=== PATIENT | male | born 1975 | race Caucasian/White ===

== ENCOUNTER 2018-12-05 22:05 | Inpatient (IN) ==
[2018-12-06] MEDS ORDERED: Acetaminophen 325 MG TABLET PO PRN (01:38)
[2018-12-06] MEDS ORDERED: Naloxone 0.4 MG/ML INJ IVP PRN (01:38)
[2018-12-06] MEDS ORDERED: *HR* Promethazine 25 MG/ML VIAL IVP PRN (01:38)
[2018-12-06] MEDS ORDERED: *HR* LORazepam 2 MG/ML VIAL IVP PRN (01:38)
[2018-12-06] MEDS: Pantoprazole 40 MG VIAL IVP SCH ×2 (02:38→17:23)
[2018-12-06] MEDS: 0.9 % Sodium Chloride 1,000 ML IVC SCH ×2 (02:38→12:20)
--- NOTE | 2018-12-06 03:28 | Internal Med History&Physical ---
Date of Encounter: 12/06/18 Time of Encounter: 00:30 Internal Medicine - H&P: HPI Chief complaint: syncope, GI bleed Admitted From: Hospital to Hospital Transfer Plans for Post Hospital Care: Home History of present illness: Mr. Rae is a 43 year old male who presents in transfer from [facility]. He presented to the ER tonight after he sustained a syncopal spell at home. Before his syncopal spell, patient was defecating and noticed a large amount of blood in the toilet. He has a history of hemorrhoids but he's never had significant bleeding like this before. After his BM, he stood up and summoned his to the bathroom to assist him. At that time, he was standing up and did not complain of any lightheadedness or dizziness. However, he later found himself lying on the ground waking up to his as she was calling 911. He sustained a syncopal event and had no preceding symptoms. His reports that he had some gurgling sound and some tremors suggesting a possible seizure. He did not have any loss of bowel or bladder function and did not have any true postictal symptoms after the episode. He was brought to the ER at [facility] and was noted to have a bradycardic rhythm with a heart rate in the 30s. After some observation, IV fluid hydration, and lab draws, his heart rate improved and was sustained in the high 30s to mid 40s. Workup was negative other than sympt omatic bradycardia on telemetry and EKG. Transfer request was made to transfer patient to [place]. Upon arrival to [place], I saw patient at the bedside. Patient and confirmed above history. He has a history of neurocardiogenic syncope and was diagnosed about 8 years ago while in the . He has not, however, had sustained bradycardia as he has had [facility]. Because his heart rate dropped down and remained low prior to transfer, he was started on dopamine infusion per transport squad. He had significant nausea and vomiting on dopamine and it was stopped upon arrival. Presently, his heart rate is bouncing between mid 40s to high 50s. He denies any chest pain, shortness of breath, vomiting, or diarrhea. Regarding the GI bleed, patient has known hemorrhoids. He has not had any significant blood loss in the past. He does have a history of ulcers in his stomach diagnosed by EGD a few years ago. He denies any hematemesis or coffee- ground emesis. Past Med Surg Social Fam HX - Past Medical History Attestation: Yes The following information was validated with the patient. Source: patient, other ([facility] records) Medical history: GERD, hypertension Additional medical history: IBS, NEUROPATHY Psychiatric history: anxiety - Past Surgical History Surgical History: no surgical history - Social History Smoking Status: Never smoker Smokeless Tobacco Status: No Alcohol use: none Drug use: none Current living situation: Home, With Family Activity Level: Independent ambulation Recent Out of Country Travel Within the Last 8 Weeks: No - Family History Mother Living Status: Still Living Hx Family Cardiac Disorders: Yes Father Living Status: Still Living Hx Family Cardiac Disorders: Yes Hx Family Endocrine Disorder: Yes (diabetes) Internal Medicine - H&P: Meds Allergy/AdvReac Type Severity Reaction Status Date / Time Benzonatate Allergy Rash Verified 12/06/18 02:38 [From Ira Willoughby] Dopamine AdvReac Nausea Verified 12/06/18 02:38 - Constitutional Constitutional: no chills, no fever(s), no night sweats - EENT Eyes: no blurry vision, no change in vision Ears: no ear pain, no tinnitus Nose, mouth and throat: no nasal congestion, no sinus pressure, no sore throat - Cardiovascular Cardiovascular ROS IM: syncope, no chest pain, no dyspnea, no dyspnea on exertion, no lightheadedness, no orthopnea, no palpitations, no paroxysmal no cturnal dyspnea - Respiratory Respiratory: no cough, no dyspnea, no hemoptysis, no chest congestion, no excessive phlegm production, no change in phlegm color, no pain with cough - Gastrointestinal Gastrointestinal: hematochezia, no abdominal pain, no coffee ground emesis, no diarrhea, no heartburn, no hematemesis, no melena, no nausea, no vomiting - Genitourinary Genitourinary ROS male: no dysuria, no flank pain, no hematuria - Musculoskeletal Musculoskeletal ROS IM: no arthralgias, no back pain - Integumentary Integumentary IM: no rash, no jaundice - Neurological Neurological ROS: no disequilibrium, no dizziness, no focal weakness, no frequent falls, no headache(s) - Psychiatric Psychiatric: no anxiety, no depression - Endocrine Endocrine IM: no polydipsia, no polyuria - Allergic/Immunologic Allergic/Immunologic: no GI upset with certain foods - Constitutional Vitals: Temp Pulse Resp BP Pulse Ox 98.4 F 49 13 143/84 96 12/06/18 00:00 12/06/18 02:00 12/06/18 02:00 12/06/18 02:00 12/06/18 02:00 General appearance: Present: cooperative, A&O X 3, pleasant, no acute distress, answers questions appropriately Exam: see below - Head Head exam: Present: atraumatic, normal inspection - Eye Eye exam: Present: EOMI, PERRL. Absent: scleral icterus Pupils: Present: normal accommodation - ENT ENT exam: Present: mucous membranes dry, normal exam, normal oropharynx - Neck Neck exam general surgery: Present: full ROM, supple, trachea midline. Absent: tenderness, nuchal rigidity, thyromegaly - Respiratory Respiratory exam: Present: CTAB. Absent: chest wall tenderness, rales, rhonchi, wheezes - Cardiovascular Cardiovascular exam: Present: bradycardia, +S1, +S2. Absent: diastolic murmur, systolic murmur - GI/Abdominal GI/Abdominal exam: Present: normal bowel sounds, soft. Absent: guarding, hepatomegaly, mass, pulsatile mass, splenomegaly, tenderness - Extremities Exam Extremities exam: Present: full ROM, normal capillary refill, warm, radial pulses palpable and symmetrical. Absent: calf tenderness, joint swelling, pedal edema, tenderness - Back Exam Back exam: Absent: CVA tenderness (L), CVA tenderness (R) - Neurological Exam Neurological exam: Present: alert, CN II-XII intact, oriented X3, no focal deficits, strengths equal and symetr throughout - Psychiatric Psychiatric exam: Present: normal affect, normal mood - Skin Skin exam: Present: dry, intact, warm Internal Med - H&P Results - Labs Labs: I reviewed his labs from [facility] and include the following: Urine toxicology screennegative BC 7.0 Hemoglobin 14.8 Hematocrit 44.6 Platelets 231 Sodium 141 Potassium 3.8 Chloride 100 CO2 29 BUN 23 Glucose [address] abdomennegative EKG reveals patient to have sinus bradycardia with a heart rate in the 40s.; upon my review of EKG's, I am concerned he may have a Mobitz 2 2nd degree AV block with every other P wave conducted to a QRS. - EKG Data -: EKG Interpreted by Myself - EKG Data Prior EKG available for review: no EKG comments: 12/06/18 03:48 sinus bradycardia but concern for possible Type 2 second degree AV block - Assessment and Plan (1) Syncope Current Visit: Yes Status: Acute Assessment and plan: 1. Monitor on telemetry. 2. ECHO, Carotid Dopplers, trend troponins, and monitor glucose for hypoglycemia. 3. Consult cardiology, especially considering the bradycardia and concern for type 2 second degree AV block. 4. Consult neurology for concern of seizure -- likely due to syncopal spell. Defer to neurology regarding need for EEG and/or MRI. Qualifiers: Syncope type: unspecified Qualified Code(s): R55 - Syncope and collapse (2) Rectal bleed Current Visit: Yes Status: Acute Assessment and plan: 1. Will monitor serial H/H. 2. Transfuse PRBC if necessary. 3. Likely hemorrhoidal bleed, but + history of gastric ulcers. 4. Continue PPI. 5. Consult GI as he may need inpatient EGD. Likely colonoscopy as outpatient. (3) Symptomatic bradycardia Current Visit: Yes Status: Acute Assessment and plan: 1. Monitor on telemetry and hemodynamics. 2. May need dopamine infusion if becomes unstable 3. Cardiology consulted. (4) DVT prophylaxis Current Visit: Yes Status: Acute Assessment and plan: 1. EPCD's.
[2018-12-06 04:57] LABS: Basophils # 0.1 K/mcL (0.0-0.2); Basophils % 0.7 %; Eosinophils # 0.3 K/mcL (0.0-0.6); Eosinophils % 3.1 %; Hematocrit 42.7 % (37.5-50.1); Immature Granulocytes % 0.5 % (0-4); Lymphocytes # 1.8 K/mcL (0.6-4.6); Lymphocytes % 21.7 %; Mean Corpuscular HGB Conc 32.8 g/dL (31.6-35.5); Mean Corpuscular Volume 85.4 fL (83.0-100.0); Mean Platelet Volume 10.5 fL (9.4-12.4); Monocytes # 0.8 K/mcL (0.0-1.3); Monocytes % 9.1 %; Neutrophils # 5.4 K/mcL (1.6-8.9); Platelet Count 215 K/mcL (140-400); Segmented Neutrophils % 64.9 %; White Blood Count 8.3 K/mcL (4.3-11.1)
[2018-12-06 05:07] LABS: Prothrombin Time 11.9 Seconds (9.4-12.1)
[2018-12-06 05:09] LABS: Activated Partial Thrombo Time 33.1 Seconds (26.0-36.0)
[2018-12-06 05:14] LABS: Alanine Aminotransferase 31 Units/L (7-52); Albumin 4.4 g/dL (3.5-5.7); Albumin/Globulin Ratio 1.8 (1.1-2.2); Alkaline Phosphatase 57 Units/L (34-104); Aspartate Amino Transferase 24 Units/L (13-39); BUN/Creatinine Ratio 16 (6-26); Bilirubin,Total 0.6 mg/dL (0.3-1.0); Blood Urea Nitrogen 16 mg/dL (6-20); Calcium 9.1 mg/dL (8.6-10.3); Carbon Dioxide 26 mEq/L (23-29); Chloride 102 mEq/L (98-107); Globulin 2.5 g/dL (2.4-3.5); Glucose 96 mg/dL (70-105); Magnesium 2.1 mg/dL (1.6-2.6); Osmolality,Calculated 283 (280-300); Potassium 3.3 mEq/L (3.5-5.1); Sodium 136 mEq/L (136-145); Total Protein 6.9 g/dL (6.4-8.9); eGFR For African Americans > 60 (> 60); eGFR For Non-African Americans > 60 (> 60)
[2018-12-06] MEDS ORDERED: Potassium Chloride 40 MEQ, Lidocaine 1% 2 ML in D5% in Water 500 ML IVPB ONE (06:29)
--- NOTE | 2018-12-06 08:18 | Internal Med Progress Note ---
Hospitalist Progress Note - Encounter Date of Encounter: 12/06/18 Time of Encounter: 08:17 - Subjective Interval History: Patient lying in bed comfortably upon entering the room and is talking with neurology about symptoms. Patient states that he was standing in the bathroom with his following a bowel movement with blood when without buildup he lost consciousness and fell to the floor. Patient denies any hyperventilating or anxiety prior to syncope. Patient denies chest pain, shortness of breath, abdominal pain, nausea, vomiting, fever, chills, headache, or diarrhea. - Exam Vitals: Temp Pulse Resp BP Pulse Ox 98.0 F 42 8 131/80 93 12/06/18 07:10 12/06/18 06:00 12/06/18 06:00 12/06/18 06:00 12/06/18 06:00 Exam: General: AAOx3, good eye contact. Lungs: Normal breath sounds b/l, no wheezing or crackles Cardio: Normal S1 and S2, regular rhythm. Bradycardia. Abdomen: Soft, nontender, nondistended, Extremities: Warm, well perfused. FROM Skin: Warm and dry. No diaphoresis. Neuro: Awake, fully oriented. Speech fluent. CNII-XII intact. 5/5 strength in Bilateral Upper and Lower Extremities. - Assessment and Plan (1) Syncope Current Visit: Yes Status: Acute Assessment and Plan: Patient had syncopal episode after standing up from a prolonged period of time on the toilet. Patient with history of vasovagal syncope found on tilt table test in past. Patient taking Midrodrine. EKG showing sinus bradycardia with heart rate in the 40s. Echo on 12/06 negative. EEG on 12/06 negative. -Orthostatic blood pressures ordered -Continuous telemetry -Blood pressure medication and Midrodrine held. -Carotid ultrasound ordered. -Cardiology and neurology consulted, will follow recommendations -Cardiology recommending outpt EP study (2) Orthostatic hypotension Current Visit: Yes Status: Chronic Assessment and Plan: As noted above in syncope. (3) Symptomatic bradycardia Current Visit: Yes Status: Chronic Assessment and Plan: As noted above in syncope. (4) Rectal bleed Current Visit: Yes Status: Chronic Assessment and Plan: Patient with a history of hemorrhoids and had a grossly bloody bowel movement at home prior to syncope. No new bloody stool since admission. H&H stable at 13.3 and 40.8 -GI consulted, recommended outpatient follow-up and colonoscopy outpatient. DVT Prophylaxis: SCDs for DVT prophylaxis - Time Spent with Patient Total time spent is greater than 50% in coordination of care (as documented) at patient's floor/unit and/or counseling patient: Internal Medicine: Result - Labs CBC & Chem 7: 12/06/18 13:50 12/06/18 03:53 Labs: Short CBC 12/06/18 Range/Units 03:53 WBC 8.3 (4.3-11.1) K/mcL Hgb 14.0 (12.9-16.9) g/dL Hct 42.7 (37.5-50.1) % Plt Count 215 (140-400) K/mcL Neutrophils # 5.4 (1.6-8.9) K/mcL BMP 12/06/18 03:53 Sodium 136 Potassium 3.3 L Chloride 102 Carbon Dioxide 26 BUN 16 Creatinine 1.01 Glucose 96 Calcium 9.1 Cardiac Enzymes 12/06/18 Range/Units 03:53 Troponin I < 0.03 (< 0.04) ng/mL Liver Function 12/06/18 Range/Units 03:53 Total Bilirubin 0.6 (0.3-1.0) mg/dL AST 24 (13-39) Units/L ALT 31 (7-52) Units/L Alkaline Phosphatase 57 (34-104) Units/L Albumin 4.4 (3.5-5.7) g/dL - ABG Interpretation ABG results: PT/INR, D-dimer PT 11.9 Seconds (9.4-12.1) 12/06/18 03:53 Consult Discharge Plan - Plan Referrals: NONE,PCP [Primary Care Provider] - (1) Syncope Qualifiers: Qualified Code(s): R55 - Syncope and collapse
--- NOTE | 2018-12-06 08:36 | Neurology - Consult Note ---
Date of Encounter: 12/06/18 Time of Encounter: 08:35 Assessment and Plan (1) Syncope Current Visit: Yes Status: Acute Patient presented for chief complaint of syncopal episode Multiple possible etiologies and the patient has a very significant past medical history of orthostatic hypotension, symptomatic bradycardia, vasovagal syncope He is also on multiple sedating and contradictory medications including gabapentin, mirtazapine, paroxetine, hydrochlorothiazide, lisinopril, Midodrine Cardiology was consulted for obvious reasons, neurology was consulted due to concern for seizure secondary to minor tremor during syncopal event Neurological physical exam was completely benign except for bilateral gis specialist strength deficit which patient states is normal secondary to his cervical radiculopathy Mild tremor is common in syncopal events, clinical suspicion for seizure is low, patient has no seizure history, however we will screen with EEG I have also ordered orthostatic vital signs and discussed potential etiologies with cardiology team and hospitalist team We will monitor for EEG results and orthostatic vitals results, I do not anticipate neurology intervention this admission Further recommendations per Qualifiers: Syncope type: unspecified Qualified Code(s): R55 - Syncope and collapse (2) Orthostatic hypotension Current Visit: Yes Status: Chronic Patient has history of orthostatic hypotension for which he takes Midodrine (3) Symptomatic bradycardia Current Visit: Yes Status: Chronic Patient reports a baseline resting heart rate in the high 40s to low 50s which could be contributing to his past history of syncope and hypotension (4) Rectal bleed Current Visit: Yes Status: Chronic Patient has history of hemorrhoids and it is common for him to have blood on his toilet paper However he states that the amount of blood in the toilet bowl during this episode was much more than normal His hemoglobin on admission is 14 and it is unlikely this contributed to his syn copal episode except maybe in an anxiety aspect He does have a history of GERD and gastric ulcer and gastroenterology is consulted History of Present Illness Chief complaint: syncope HPI: Mr. Rae is a 43 year old male with past medical history of hypertension, hyperlipidemia, hemorrhoids, anxiety, orthostatic hypotension, vasovagal syncope, irritable bowel syndrome, GERD, gastric ulcer, cervical radiculopathy. At home he takes mirtazapine, Midodrine, hydrochlorothiazide, lisinopril, omeprazole, Bentyl, simethicone, simvastatin, Paxil, gabapentin. He has had multiple issues in the past involving orthostatic hypotension and near syncope. Yesterday evening he had a bowel movement and saw blood on toilet paper which is normal for him secondary to his hemorrhoids, however when he stood up and looking the toilet bowl it was "full of blood". He called his and to the bathroom, [facility], he was standing in the bathroom with his calling urgent care and the next thing he knew he was waking up on the floor next to his . His reports that he went down all of a sudden and was making snoring noises and had a slight bilateral upper extremity tremor but woke up spontaneously within 2-3 minutes. By that time he was asymptomatic and did not exhibit any post ictal type symptoms. He denies any chest pain, shortness of breath, fever, chills associated with the episode. He was transported to [facility] via EMS. At [facility] he was noted to be bradycardic in the 30s to 40s. Troponin, CT of the head, chest x-ray were without acute process. EKG demonstrated sinus bradycardia. Due to the concern for possible seizure activity and symptomatic bradycardia the patient was transferred to [facility] on dopamine drip. Here the admitting physician jose snow cardiology and neurology. Dopamine drip was discontinued secondary to severe nausea. After discontinuing dopamine his heart rate and blood pressure remained stable and nausea was relieved. Admitting hospitalist also mentioned in his documentation a concern for second-degree heart block. I did review EKG performed here which demonstrated sinus bradycardia without any sign of secondary heart block. However I also reviewed EKG transferred from [facility] which demonstrates sinus bradycardia with nonspecific T-wave changes that may actually be P waves without complexes hiding in the T waves, however that is difficult to determine. Regardless since arriving here his rhythms have been sinus. I informed the patient that a small tremor can be common in syncopal episodes and that suspicion for seizure is low however we will perform EEG as a screening tool. He stated he understood and agreed with the plan of care. Past Med Surg Social Fam HX - Past Medical History Medical history: GERD, hypertension Additional medical history: IBS, NEUROPATHY Psychiatric history: anxiety - Past Surgical History Surgical History: no surgical history - Social History Smoking Status: Never smoker Smokeless Tobacco Status: No Alcohol use: none Drug use: none - Family History Mother Living Status: Still Living Hx Family Cardiac Disorders: Yes Father Living Status: Still Living Hx Family Cardiac Disorders: Yes Hx Family Endocrine Disorder: Yes (diabetes) Medications and Allergies Allergy/AdvReac Type Severity Reaction Status Date / Time Benzonatate Allergy Rash Verified 12/06/18 02:38 [From Ira Fartun] Dopamine AdvReac Nausea Verified 12/06/18 02:38 All Systems: The remainder of the systems were reviewed and are negative Review of Systems: 10 point review of systems negative except as otherwise mentioned in history of present illness. Physical Examination - Vital Signs Vital Signs: Initial Vital Signs Temp Pulse Resp BP Pulse Ox 98.4 F 50 13 138/77 94 12/06/18 00:00 12/06/18 00:00 12/06/18 00:00 12/06/18 00:00 12/06/18 00:00 - Exam Exam: Examination: General Examination: *CONSTITUTIONAL: Alert and oriented x3, no acute distress *GENERAL APPEARANCE OF PATIENT appears healthy and well groomed *EYES: pupils equal, round, reactive to light and accommodation, conjunctiva clear without masses or ulcerations *CARDIOVASCULAR: Bradycardic rate, regular rhythm, S1, S2, no mumurs, rubs, or gallops, no peripheral edema, no carotid bruit * MUSCULOSKELETAL: *GAIT AND STATION: Gait not tested, with normal Romberg testing *ASSESSMENT OF MUSCLE STRENGTH IN THE UPPER AND LOWER EXTREMITIES bilateral deltoid, bicep, tricep, hip flexors ,anterior tibialis, dorsoflexion of the foot 5/5. gis specialist strength 4/5 which patient states is normal for him secondary to cervical radiculopathy *MUSCLE TONE IN THE UPPER AND LOWER EXTREMITIES normal. No abnormal movements, fasciculations or atrophy identified. Neurological: *ORIENTATION to person, situation, time and place *LANGUAGE AND FUNCTION no significant aphasia or dysarthia was noted. *ATTENTION AND CONCENTRATION are normal *FUND OF KNOWLEDGE aware of current events, past history, vocabulary *MENTAL attention span and concentration normal. *CN II visual hassan intact *CN III,IV, PERRLA extraocular eye movements were full, no nystagmus and no ptosis noted. *CN V shows normal sensation and jaw opens symmetrically. *CN VII shows normal facial movement symmetrically, upper and lower bilaterally. *CN VIII shows no significant hearing loss on exam *CN IX-X palate elevated symmetrically *CN XI normal strength in the sternocleidomastoid muscles, symmetrical shoulder shrugging. *CN XII tongue protruded in the midline, with normal strength and movement. *SENSORY EXAMINATION light touch intact *REFLEXES: deep tendon reflexes were normal and symmetrical , grade 2/4 diffusely, no pathological reflexes were noted. *CEREBELLAR TESTING normal finger to nose *PAIN LEVEL 0/10 Results - Laboratory Findings CBC and BMP: 12/06/18 03:53 12/06/18 03:53 Abnormal lab findings: Abnormal lab results Potassium 3.3 mEq/L (3.5-5.1) L 12/06/18 03:53 Consult Discharge Plan - Plan Referrals: NONE,PCP [Primary Care Provider] -
--- NOTE | 2018-12-06 08:39 | Cardiology Consult Note ---
<Ja Lerma - Last Filed: 12/06/18 13:49> Date of Encounter: 12/06/18 Time of Encounter: 09:46 Assessment and Plan (1) Syncope Current Visit: Yes Status: Acute - Patient initially presented after experiencing a syncopal episode after he had a bowel movement and noticed a large amount of blood in toilet bowl - Per patient's , patient went down suddenly and was making snoring noises, and had a slight upper extremity tremor - Woke up spontaneously after being down for approximately 2-3 minutes; no post ictal symptoms were observed - Etiology unknown at this time; potential etiologies include vasovagal, CVA, arrhythmia, acute blood loss anemia - On review of medications, patient is on both Midrodrine and lisinopril-HCTZ - GI is following for potential lower GI bleed Plan: - Recommend discontinuation of Midrodrine, as this may be contributing to patient's symptoms - TTE and carotid dopplers have been ordered and is currently pending - Neurology is following; full workup is currently pending - Keep patient on continuous telemetry - Patient will need a Holter monitor upon discharge - Recommend electrophysiology workup in the outpatient setting; PATIENT SHOULD NOT DRIVE until he is cleared Qualifiers: Syncope type: unspecified Qualified Code(s): R55 - Syncope and collapse (2) Symptomatic bradycardia Current Visit: Yes Status: Chronic - Initially presented to [facility] after a syncopal episode - EKG demonstrated sinus bradycardia with heart rate in the 40s - Was subsequently started on a dopamine drip - Review of vitals has demonstrated heart rate in the 40s to 50s since his admission Plan: - Continuous telemetry - Will discontinue Midrodrine (3) Rectal bleed Current Visit: Yes Status: Chronic - Presented after syncopal episode after bowel movement - Noticed large amount of blood in toilet bowl - Known history of hemorrhoids Plan: - GI following; recommends outpatient followup in 2 weeks - Colonoscopy in the outpatient setting - Continue protonix drip Discussion w patient/family: The assessment and plan as outlined above was discussed with the patient and/or family members who expressed understanding and agreement. All questions were answered. Thank you for involving us in the care of your patient. Please call with any questions. History of Present Illness Consult date: 12/06/18 Consult reason: Syncope, bradycardia Chief complaint: Syncope History of present illness: Mr. Rae is a 43 year old male with a PMH of HTN, HLD, anxiety, orthostatic hypotension, vasovagal syncope, IBS, GERD, hypotension, and cervical radiculopathy who presented to [facility] ED on 12/06 with a chief complaint of blood per rectum and syncopal episode. Patient had a bowel movement and saw blood on the toilet paper, when he stood up, he noticed that the toilet bowl was full of blood. Patient subsequently had a syncopal episode. According to his , he went down and suddenly and was making snoring noises and had a slight bilateral upper extremity tremor. He woke up spontaneously after approximately 2-3 minutes. No post ictal symptoms were observed. Denied shortness of breath or chest pain associated with episode. Was initially transferred to [facility]. Vitals on arrival demonstrated bradycardia with heart rate in the 30s to 40s. CXR showed no acute process. CT scan of the head was unremarkable. Troponin was negative. Patient was transferred to [facility] for further management on dopamine drip. This was subsequently discontinued due to severe nausea. Heart rate and blood pressure remained stable after this. EKG on arrival demonstrated sinus bradycardia. Both cardiology and neurology services were consulted. An EEG has been ordered and is currently pending. Troponin levels are pending as well. The cardiology service is consulted for syncope and bradycardia. During interview today, patient states that he is feeling well. He states that he felt weak last night after being admitted to the hospital, but since then, he has not had any weakness, dizziness, lightheadedness, or syncopal episodes. He reports that before the syncopal episode, he had one prior episode approximately 18 years prior, which occurred while he was standing up and urinating. He states that he was diagnosed with vasovagal syncope at that time. He has been on Midrodrine since approximately 2010, and has been on lisinopril/hydrochlorothiazide for approximately one year. Patient is asymptomatic during interview has no complaints at this time. Full syncope workup, including echocardiogram, carotid Dopplers, and EEG is currently pending. We recommend stopping midrodrine, as this may be contributing to his symptoms. Patient will need fitted for Holter monitor on discharge. We also recommend follow-up with electrophysiology in the outpatient setting. Patient was instructed to not drive until he has been cleared. This plan was discussed with patient, and he is in agreement. Past Med Surg Social Fam HX - Past Medical History Medical history: GERD, hypertension Additional medical history: IBS, NEUROPATHY Psychiatric history: anxiety - Past Surgical History Surgical History: no surgical history - Social History Smoking Status: Never smoker Smokeless Tobacco Status: No Alcohol use: none Drug use: none - Family History Mother Living Status: Still Living Hx Family Cardiac Disorders: Yes Father Living Status: Still Living Hx Family Cardiac Disorders: Yes Hx Family Endocrine Disorder: Yes (diabetes) Medications and Allergies Allergy/AdvReac Type Severity Reaction Status Date / Time Benzonatate Allergy Rash Verified 12/06/18 02:38 [From Tesjaylyn Willoughby] Dopamine AdvReac Nausea Verified 12/06/18 02:38 All Systems Review: The remainder of the systems were reviewed and are negative - Constitutional Constitutional: no chills, no fever(s) - Cardiovascular Cardiovascular: slow heart rate, no chest pain at rest, no diaphoresis, no dyspnea at rest, no dyspnea on exertion, no irregular heart rhythm, no radiating jaw, neck or arm pain, no orthopnea, no palpitations Physical Examination Vital Signs, Last 4 Hours Temp Pulse Resp BP Pulse Ox 12/06/18 07:10 98.0 F 12/06/18 06:00 42 8 131/80 93 12/06/18 05:00 51 10 134/92 93 General: Conversant, No Apparent Distress HEENT: Atraumatic, Normocephaly, Mucus Membranes Moist Neck: No JVD, Normal carotid pulses Cardiac: Normal S1 and S2, No Murmur, Other (bradycardia) Lungs: Normal Breath Sounds, No Wheeze, Rales, Rhonchi Neuro: Alert and responsive, No focal deficits noted Abdomen: Soft, Non-Tender Skin: No rashes noted on visualized skin Musculoskeletal: No Chest Wall Tenderness Extremities: No Clubbing, No Cyanosis, No Edema, Normal Pulses Results 12/06/18 08:45 12/06/18 03:53 Lab Results 12/06/18 12/06/18 12/06/18 03:53 03:53 03:53 WBC 8.3 Hgb 14.0 Hct 42.7 Plt Count 215 INR 1.0 APTT 33.1 Sodium 136 Potassium 3.3 L Chloride 102 Carbon Dioxide 26 BUN 16 Creatinine 1.01 Glucose 96 Calcium 9.1 Magnesium 2.1 Total Bilirubin 0.6 AST 24 ALT 31 Alkaline Phosphatase 57 Troponin I 12/06/18 03:53 WBC Hgb Hct Plt Count INR APTT Sodium Potassium Chloride Carbon Dioxide BUN Creatinine Glucose Calcium Magnesium Total Bilirubin AST ALT Alkaline Phosphatase Troponin I < 0.03 Consult Discharge Plan - Plan Referrals: NONE,PCP [Primary Care Provider] - <MonaJose - Last Filed: 12/06/18 14:56> Date of Encounter: 12/06/18 - Attending Attestation I examined this patient and my medical decision-making was reviewed with the Resident Physician. I agree with the documented findings, disposition and treatment plan as described except to the extent set forth below. 43-year-old male presents to [facility] after syncope as described above no prodrome no seizure like activity or incontinence witnessed by his who confirmed both pulse and breathing during a few minutes he was unconscious. She described as snoring loudly with minimal upper extremity tremors. Nation has been diagnosed with no cardiogenic syncope in the past. Possible lower G.I. bleed culprit and seen his blood in the toilet bowl. Also patient on lisinopril and midodrine. Bradycardia was noted at outside hospital likely secondary to midodrine. Will hold and continue lisinopril as needed. Also obtain 30 day monitor and echo currently pending. Patient will follow-up with EP as an outpatient and was asked not drive until further recommendations Assessment and Plan Discussion w patient/family: The assessment and plan as outlined above was discussed with the patient and/or family members who expressed understanding and agreement. All questions were answered. Thank you for involving us in the care of your patient. Please call with any questions. History of Present Illness History of present illness: Mr. Rae is a 43 year old male All Systems Review: The remainder of the systems were reviewed and are negative Physical Examination Vital Signs, Last 4 Hours Temp Pulse Resp BP Pulse Ox 12/06/18 12:00 98.0 F 47 15 111/77 96 Results 12/06/18 13:50 12/06/18 03:53 Lab Results 12/06/18 12/06/18 12/06/18 03:53 03:53 03:53 WBC 8.3 Hgb 14.0 Hct 42.7 Plt Count 215 INR 1.0 APTT 33.1 Sodium 136 Potassium 3.3 L Chloride 102 Carbon Dioxide 26 BUN 16 Creatinine 1.01 Glucose 96 Calcium 9.1 Magnesium 2.1 Total Bilirubin 0.6 AST 24 ALT 31 Alkaline Phosphatase 57 Troponin I 12/06/18 12/06/18 12/06/18 03:53 08:45 08:45 WBC Hgb 14.0 Hct 42.0 Plt Count INR APTT Sodium Potassium Chloride Carbon Dioxide BUN Creatinine Glucose Calcium Magnesium Total Bilirubin AST ALT Alkaline Phosphatase Troponin I < 0.03 < 0.03 12/06/18 12/06/18 13:50 13:50 WBC Hgb 13.3 Hct 40.8 Plt Count INR APTT Sodium Potassium Chloride Carbon Dioxide BUN Creatinine Glucose Calcium Magnesium Total Bilirubin AST ALT Alkaline Phosphatase Troponin I < 0.03
--- NOTE | 2018-12-06 11:52 | EEG/EMG/Oth Biometrics Report ---
EEG Procedure Report Date of procedure: 12/06/18 EEG Procedure: Routine EEG Procedure Note: This EEG was acquired with standard international 10-20 system with EKG recording. The background EEG activity was characterized by the presence of posterior dominant alpha rhythm with the best frequency up to 10Hz. The background activity was reactive to eye openings. Sleep stages were characterized by the presence of background fragmentation, vertex waves, K complexes, and sleep spindles. There are no electrographic seizures identified during this tracing. There are no epileptiform discharges or focal slowing noted during this recording. Photic stimulation and hyperventilation produced no abnormalities. Hyperventilation efforts appeared adequate due to development of diffuse background slow during and immediately after HV challenge. EKG tracing showed no significant cardiac dysrhythmia. Impression: This is essentially a normal awake and asleep EEG. Clinical Correlation: Normal EEGs, however, do not exclude epilepsy. Clinical correlation is advised.
--- NOTE | 2018-12-06 13:18 | Gastroenterology Consult Note ---
Date of Encounter: 12/06/18 Time of Encounter: 11:10 - Assessment and plan (1) Rectal bleed Current Visit: Yes Status: Chronic Assessment and plan: Patient with epeisode of BRBPR that filled bowl. Hgb 14 on admission and repeat this AM Hgb 14. No further episodes noted. Patient with hx of hemorrhoids. Start daily fiber supplement. Recommend outpatient colonoscopy. Follow up with GI in 2 weeks. Obtain EGD and colonoscopy reports and pathology from [place] in 2012. No indication for EGD at this time. No abdominal pain, nausea, vomiting, or melena. (2) Syncope Current Visit: Yes Status: Acute Qualifiers: Syncope type: unspecified Qualified Code(s): R55 - Syncope and collapse - Time Spent With Patient Total time spent is greater than 50% in coordination of care (as documented) at patient's floor/unit and/or counseling patient: GI History of Present Illness - Data of Consult Patient: new to practice Consult date: 12/06/18 Requesting Physician: Jacob Singleton - Consult Narrative Reason for consult: GI bleed History of present illness: Mr. Rae is a 43 year old male with PMHx of GERD, HTN, HLD, hemorrhoids, anxiety, IBS, who presented to [facility] ED on 12/06 with a chief complaint of blood per rectum and syncopal episode. Patient had a bowel movement and saw blood on the toilet paper, when he stood up, he noticed that the toilet bowl was full of blood and had a syncopal episode. He woke up spontaneously after approximately 2-3 minutes. No post ictal symptoms were observed. He denies nausea, vomiting, coffee-ground emesis, or hematemesis. Hgb 14 on admission. He reports EGD and colonoscopy around 2012 in [place]. Colonoscopy completed due to IBS and showed benign polyps and EGD with ulcer and esophagitis, per patient report. CT head was unremarkable. Procedures: EGD 2012 in [place]: Ulcer and esophagitis per patient report. Colonoscopy 2012 [place]: Benign polyp per patient report. NSAIDs: None Anticoagualtion: None Past Med Surg Social Fam HX - Past Medical History Medical history: GERD, hypertension Additional medical history: IBS, NEUROPATHY Psychiatric history: anxiety - Past Surgical History Surgical History: no surgical history - Social History Smoking Status: Never smoker Smokeless Tobacco Status: No Alcohol use: none Drug use: none - Family History Mother Living Status: Still Living Hx Family Cardiac Disorders: Yes Father Living Status: Still Living Hx Family Cardiac Disorders: Yes Hx Family Endocrine Disorder: Yes (diabetes) - Gastrointestinal Gastrointestinal: Present: as per HPI - Constitutional Constitutional: as per HPI - EENT Eyes: as per HPI Ears: Present: as per HPI Nose, mouth and throat: Present: as per HPI - Cardiovascular Cardiovascular ROS: Present: as per HPI - Respiratory Respiratory IM: Present: as per HPI - Genitourinary Genitourinary: Absent: change in color, Urinary frequency - Neurological ROS Neurological GI: Present: as per HPI - Hematologic/Lymphatic Hematologic/Lymphatic pediatric: Present: as per HPI - Musculoskeletal Musculoskeletal ROS GI: Present: as per HPI - Integumentary Integumentary GI: Present: as per HPI - Psychiatric ROS Psychiatric GI: Present: as per HPI - Endocrine Endocrine IM: Present: as per HPI - Constitutional Vitals: Temp Pulse Resp BP Pulse Ox 98.0 F 54 12 111/71 96 12/06/18 10:00 12/06/18 10:00 12/06/18 10:00 12/06/18 10:00 12/06/18 10:00 General appearance: Present: cooperative, A&O X 3, no acute distress, answers questions appropriately - Head Head exam: Present: atraumatic, normocephalic - Eye Eye exam: Present: normal appearance, sclera anicteric - ENT ENT exam: Present: mucous membranes moist - Neck Neck exam general surgery: Present: normal inspection, trachea midline - Respiratory Respiratory exam: Present: CTAB. Absent: rales, rhonchi - Cardiovascular Cardiovascular exam: Present: RRR, +S1, +S2 - GI/Abdominal GI/Abdominal exam: Present: soft, no peritoneal signs. Absent: distended, firm, guarding, tenderness - Rectal Rectal exam: Present: deferred - Extremities Exam Extremities exam: Present: warm - Neurological Exam Neurological exam: Present: no focal deficits - Psychiatric Psychiatric exam: Present: normal affect, normal mood - Skin Skin exam: Present: dry, intact, normal color, warm Results - Labs CBC & Chem 7: 12/06/18 08:45 12/06/18 03:53 Labs: Last Result 12/06/18 12/06/18 12/06/18 03:53 03:53 08:45 Calcium 9.1 Troponin I < 0.03 < 0.03 Entire Visit 12/06/18 12/06/18 12/06/18 03:53 03:53 03:53 Hgb 14.0 Hct 42.7 PT 11.9 Total Bilirubin 0.6 AST 24 ALT 31 12/06/18 08:45 Hgb 14.0 Hct 42.0 PT Total Bilirubin AST ALT - ABG ABG results: PT/INR, D-dimer PT 11.9 Seconds (9.4-12.1) 12/06/18 03:53 Consult Discharge Plan - Plan Referrals: NONE,PCP [Primary Care Provider] -
[2018-12-06 14:23] LABS: Hematocrit 40.8 % (37.5-50.1); Hemoglobin 13.3 g/dL (12.9-16.9)
--- NOTE | 2018-12-06 17:11 | Electrocardiograph Report ---
[address] [address] Test Date: 2018-12-06 Pat Name: Fabricio Rae Department: 109 Room: 2A41 Gender: M President And Chief Operating Officer: : 1975 Requested By: Isaac Burns Order Number: [id number] Reading MD: Alberto Weaver Measurements Intervals Blairs Rate: 43 P: 61 ND: 185 QRS: -12 QRSD: 122 T: 14 QT: 513 QTc: 460 Interpretive Statements SINUS BRADYCARDIA MODERATE INTRAVENTRICULAR CONDUCTION DELAY Electronically Signed On 12-06-2018 17:09:34 EDT by Alberto Weaver
[2018-12-06 20:02] LABS: Hematocrit 42.2 % (37.5-50.1); Hemoglobin 13.7 g/dL (12.9-16.9)
[2018-12-07 02:37] LABS: Hematocrit 41.1 % (37.5-50.1); Hemoglobin 13.5 g/dL (12.9-16.9); Mean Corpuscular HGB Conc 32.8 g/dL (31.6-35.5); Mean Corpuscular Volume 85.1 fL (83.0-100.0); Mean Platelet Volume 10.4 fL (9.4-12.4); Platelet Count 205 K/mcL (140-400); Red Blood Count 4.83 M/mcL (4.19-5.50); Red Cell Distribution Width 13.6 % (11.5-14.5); White Blood Count 5.2 K/mcL (4.3-11.1)
[2018-12-07 03:00] LABS: BUN/Creatinine Ratio 15 (6-26); Blood Urea Nitrogen 17 mg/dL (6-20); Calcium 9.2 mg/dL (8.6-10.3); Carbon Dioxide 29 mEq/L (23-29); Chloride 104 mEq/L (98-107); Glucose 122 mg/dL (70-105); Osmolality,Calculated 293 (280-300); Sodium 140 mEq/L (136-145); eGFR For African Americans > 60 (> 60); eGFR For Non-African Americans > 60 (> 60)
[2018-12-07] MEDS: Pantoprazole 40 MG VIAL IVP SCH (05:06)
[2018-12-07 07:48] VITALS: BP 136/77
[2018-12-07 08:27] LABS: Hematocrit 40.6 % (37.5-50.1); Hemoglobin 13.3 g/dL (12.9-16.9)
--- NOTE | 2018-12-07 08:49 | Discharge Summary ---
- NOTES TO OUTPATIENT PROVIDER Notes to Outpatient Provider: Pt to hold lisinopril, HCTZ, and midrodrine due to recent syncopal episode. Has follow up with Cardiology scheduled for EP study. Orders not resulted at time of discharge: Pending orders 12/07/18 14:00 Hemoglobin and Hematocrit [HEME] Q6H 12/07/18 20:00 Hemoglobin and Hematocrit [HEME] Q6H 12/08/18 02:00 Hemoglobin and Hematocrit [HEME] Q6H Date of Encounter: 12/07/18 Time of Encounter: 08:49 - Discharge Diagnosis (1) Syncope Priority: Primary Status: Resolved Qualifiers: Syncope type: unspecified Qualified Code(s): R55 - Syncope and collapse (2) Orthostatic hypotension Priority: Secondary Status: Chronic (3) Symptomatic bradycardia Priority: Secondary Status: Chronic (4) Rectal bleed Priority: Secondary Status: Chronic Hospital course: Mr. Rae is a 43 year old male for past medical history significant for orthostatic hypotension, hypertension, hemorrhoids, and GERD. Patient presented to [place] [facility] after having a syncopal episode at home witnessed by following a bowel movement with a large amount of blood in the toilet. Patient taking the midrodrine as well as Lisinopril and HCTZ at home. Patient transferred to [place] [facility] and upon arrival was found to have a blood pressure of 138/77 with a heart rate of 50. Patient continued to have bradycardia throughout the majority of his stay with heart rates ranging from 40-60. Due to reported blood in stool serial H&H's were performed and GI consulted. H&H values have been stable throughout stay, and GI to set up outpatient colonoscopy for follow-up as acute GI bleed was highly unlikely. Neurology was also consulted due to patient's syncopal episode and an EEG was performed which was found to be within normal limits. Cardiology was also consulted and a TTE and carotid Dopplers were ordered which both were found to be noncontributory. Lisinopril, HCTZ, and Midrin have been stopped since admission and will be discontinued upon discharge. Patient clinically improved with no other episodes of syncope or bloody bowel movements. Patient to go home with a Holter monitor for 1 month and follow-up with cardiology as scheduled for EP study. Discharge discussed with: patient, family - Time Spent with Patient Total time spent providing and/or coordinating discharge services: Time spent: Greater than 30 minutes - Discharge Medications Prescriptions: Continued Simvastatin [Zocor] 20 mg PO QPM Simethicone [Gas-X] 80 mg PO QID PRN PRN Reason: GAS Paroxetine HCl [Paxil] 40 mg PO HS Omeprazole [PriLOSEC] 20 mg PO DAILY Mirtazapine [Remeron] 15 mg PO HS Cholecalciferol (D-3) [Vitamin D] 1,000 units PO DAILY Meloxicam [Mobic] 15 mg PO DAILY Gabapentin [Neurontin] 600 mg PO BID Dicyclomine [Bentyl] 10 mg PO BID PRN PRN Reason: STOMACH Diclofenac Sodium [Voltaren] 4 gm TP TID PRN MDD 32 GRAMS PRN Reason: Pain L.acidoph,Paracasei, B.lactis [Probiotic] 1 cap PO DAILY Discontinued Midodrine [ProAmatine] 10 mg PO DAILY Lisinopril [Zestril] 10 mg PO DAILY hydroCHLOROthiazide [Hydrochlorothiazide] 25 mg PO DAILY Home Medications: Cholecalciferol (D-3) [Vitamin D] 1,000 units PO DAILY 12/06/18 [History] Diclofenac Sodium [Voltaren] 4 gm TP TID PRN MDD 32 GRAMS 12/06/18 [History] Dicyclomine [Bentyl] 10 mg PO BID PRN 12/06/18 [History] Gabapentin [Neurontin] 600 mg PO BID 12/06/18 [History] L.acidoph,Paracasei, B.lactis [Probiotic] 1 cap PO DAILY 12/06/18 [History] Meloxicam [Mobic] 15 mg PO DAILY 12/06/18 [History] Mirtazapine [Remeron] 15 mg PO HS 12/06/18 [History] Omeprazole [PriLOSEC] 20 mg PO DAILY 12/06/18 [History] Paroxetine HCl [Paxil] 40 mg PO HS 12/06/18 [History] Simethicone [Gas-X] 80 mg PO QID PRN 12/06/18 [History] Simvastatin [Zocor] 20 mg PO QPM 12/06/18 [History] Allergies/Adverse Reactions: Allergy/AdvReac Type Severity Reaction Status Date / Time Benzonatate Allergy Rash Verified 07/15/19 02:38 [From Ira Willoughby] Dopamine AdvReac Nausea Verified 12/06/18 02:38 Date of admission: 12/06/18 01:38 Primary care physician: PCP NONE Consults: 12/06/18 01:38 Consult to Cardiology [CONS] Routine Comment: Consulting Provider: Cardiology [facility] Reason for Consult: syncope; symptomatic bradycardia Call Completed: No Consult to Gastroenterology [CONS] Routine Consulting Provider: Gastroenterology [place] Reason for Consult: GI bleed; h/o peptic ulcer disease Call Completed: No Consult to Neurology [CONS] Routine Consulting Provider: Neurology [facility] Reason for Consult: questionable seizure after syncopal spell; ? need for seizure work-up Call Completed: No 12/06/18 12:40 Consult to Interpret Exam [CONS] Routine Consulting Provider: Efren Alaniz Consult to Interpret Exam: Interpret EEG Discharging clinician: Sahil Joe - Constitutional Vitals: Temp Pulse Resp BP Pulse Ox 97.8 F 51 17 136/77 95 12/07/18 07:47 12/07/18 07:47 12/07/18 07:47 12/07/18 07:47 12/07/18 07:47 General appearance: Present: cooperative, A&O X 3, pleasant, no acute distress, answers questions appropriately Exam: General: AAOx3, good eye contact. Lungs: Normal breath sounds b/l, no wheezing or crackles Cardio: Normal S1 and S2, regular rhythm. Bradycardia. Abdomen: Soft, nontender, nondistended, Extremities: Warm, well perfused. FROM Skin: Warm and dry. No diaphoresis. Neuro: Awake, fully oriented. Speech fluent. CNII-XII intact. 5/5 strength in Bilateral Upper and Lower Extremities. - Patient Status Disposition: Home, Self-Care Condition: Good Functional capacity at discharge: independent ambulation Overall status at discharge: patient is back to baseline - Discharge Instructions Instructions: Syncope (DC) Follow Up With: Alberto Weaver MD [Partnered Physician] - (Webrequest sent 12/07/18 ) Caleb Spence, GUEST SERVICES REPRESENTATIVE [Advanced Practice Nurse] - (Webrequest sent) NONE,PCP [Primary Care Provider] - (Patient apart of Red Team at [place], he will call today) Additional Instructions: Stop taking the lisinopril, HCTZ, and midrodrine. Follow up with Cardiology as schedule - Diet and Activity Activity: increase activity as tolerated Diet: regular diet
--- NOTE | 2018-12-07 10:02 | Neurology Progress Note ---
Date of Encounter: 12/07/18 Time of Encounter: 10:00 Assessment and Plan (1) Syncope Current Visit: Yes Status: Resolved After workup syncopal episode appears to be more related to blood pressure and heart rate and any neurological deficit EEG and CT were normal, patient has had no further symptoms during this hospitalization Neurology will sign off, further recommendations per Qualifiers: Syncope type: unspecified Qualified Code(s): R55 - Syncope and collapse (2) Orthostatic hypotension Current Visit: Yes Status: Chronic Midodrine discontinued by cardiology team (3) Symptomatic bradycardia Current Visit: Yes Status: Chronic Plan for Holter monitor at discharge (4) Rectal bleed Current Visit: Yes Status: Chronic GI evaluated the patient and is planning outpatient colonoscopy Subjective Principal diagnosis: syncope Interval history: No acute events overnight or acute complaints this morning. EEG done yesterday demonstrated normal electrical activity. Cardiology and the hospital team evaluated the patient and apparently intend to discharge today with Holter monitor. I informed the patient neurology was not suspicious for seizure or stroke activity and did not require outpatient follow-up. He stated he understood and agreed with the plan of care. Objective - Constitutional Vitals: Temp Pulse Resp BP Pulse Ox 97.8 F 51 17 136/77 95 12/07/18 07:47 12/07/18 07:47 12/07/18 07:47 12/07/18 07:47 12/07/18 07:47 General appearance: Present: cooperative, A&O X 3, no acute distress, answers questions appropriately Exam: General Examination: *CONSTITUTIONAL: Alert and oriented x3, no acute distress *GENERAL APPEARANCE OF PATIENT appears healthy and well groomed *EYES: pupils equal, round, reactive to light and accommodation, conjunctiva clear without masses or ulcerations *CARDIOVASCULAR: Bradycardic rate, regular rhythm, S1, S2, no mumurs, rubs, or gallops, no peripheral edema, no carotid bruit * MUSCULOSKELETAL: *GAIT AND STATION: Gait not tested, with normal Romberg testing *ASSESSMENT OF MUSCLE STRENGTH IN THE UPPER AND LOWER EXTREMITIES bilateral deltoid, bicep, tricep, hip flexors ,anterior tibialis, dorsoflexion of the foot 5/5. group leader wafer polishing strength 4/5 which patient states is normal for him secondary to cervical radiculopathy *MUSCLE TONE IN THE UPPER AND LOWER EXTREMITIES normal. No abnormal movements, fasciculations or atrophy identified. Neurological: *ORIENTATION to person, situation, time and place *LANGUAGE AND FUNCTION no significant aphasia or dysarthia was noted. *ATTENTION AND CONCENTRATION are normal *FUND OF KNOWLEDGE aware of current events, past history, vocabulary *MENTAL attention span and concentration normal. *CN II visual hassan intact *CN III,IV, PERRLA extraocular eye movements were full, no nystagmus and no ptosis noted. *CN V shows normal sensation and jaw opens symmetrically. *CN VII shows normal facial movement symmetrically, upper and lower bilaterally. *CN VIII shows no significant hearing loss on exam *CN IX-X palate elevated symmetrically *CN XI normal strength in the sternocleidomastoid muscles, symmetrical shoulder shrugging. *CN XII tongue protruded in the midline, with normal strength and movement. *SENSORY EXAMINATION light touch intact *REFLEXES: deep tendon reflexes were normal and symmetrical , grade 2/4 diffusely, no pathological reflexes were noted. *CEREBELLAR TESTING normal finger to nose *PAIN LEVEL 0/10 Results - Laboratory Findings CBC and BMP: 12/07/18 07:36 12/07/18 01:47 Abnormal lab findings: Abnormal lab results Potassium 3.3 mEq/L (3.5-5.1) L 12/06/18 03:53 Glucose 122 mg/dL (70-105) H 12/07/18 01:47 Consult Discharge Plan - Plan Instructions: Syncope (DC) Additional Instructions: Stop taking the lisinopril, HCTZ, and midrodrine. Follow up with Cardiology as schedule Referrals: Alberto Weaver MD [Partnered Physician] - (Webrequest sent 12/07/18 ) Caleb Spence CLARIFIER OPERATOR [Advanced Practice Nurse] - (Webrequest sent) NONE,PCP [Primary Care Provider] - (Patient apart of Red Team at [place], he will call today)
--- NOTE | 2018-12-07 11:43 | Cardiology Progress Note ---
<Ja Lerma - Last Filed: 12/07/18 11:50> Date of Encounter: 12/07/18 Time of Encounter: 09:15 Assessment and Plan (1) Syncope Status: Resolved - Patient initially presented after experiencing a syncopal episode after he had a bowel movement and noticed a large amount of blood in toilet bowl - Per patient's , patient went down suddenly and was making snoring noises, and had a slight upper extremity tremor - Woke up spontaneously after being down for approximately 2-3 minutes; no post ictal symptoms were observed - Workup including EEG and ECHO has been unremarkable Plan: - Recommend discontinuation of Midrodrine, as this may be contributing to patient's symptoms - Discharge patient with Holter monitor - Recommend electrophysiology followup in outpatient setting - Patient instructed not to drive until he is cleared Qualifiers: Syncope type: unspecified Qualified Code(s): R55 - Syncope and collapse (2) Symptomatic bradycardia Status: Chronic - Initially presented to [facility] after a syncopal episode - EKG demonstrated sinus bradycardia with heart rate in the 40s - HR has been in 40s-50s since admission Plan: - d/c Midrodrine - Follow up with electrophysiology in the outpatient setting as documented above (3) Rectal bleed Status: Chronic - Presented after syncopal episode after bowel movement - Noticed large amount of blood in toilet bowl - Known history of hemorrhoids - Patient will follow up with GI in outpatient setting Discussion w patient/family: The assessment and plan as outlined above was discussed with the patient and/or family members who expressed understanding and agreement. All questions were answered. Thank you for involving us in the care of your patient. Please call with any questions. Subjective Principal diagnosis: syncope Interval history: Patient seen and examined at bedside; he has no complaints at this time. His echocardiogram demonstrated EF 60-65%, and his EEG was normal. He reports that he has been feeling well in the last 24 hours. Denies dizziness, lightheadedness, chest pain, palpitations, or syncope. Plan is for patient to be discharged today. He will be discharged with a Holter monitor, and will follow up in the outpatient setting with electrophysiology. He is instructed not to drive until he is cleared. We also recommend discontinuation of Midrodrine. Objective Vital Signs, Last 4 Hours Temp Pulse Resp BP Pulse Ox 12/07/18 07:47 97.8 F 51 17 136/77 95 General: Conversant, No Apparent Distress HEENT: Atraumatic, Normocephaly, Mucus Membranes Moist Neck: No JVD, Normal carotid pulses Cardiac: Reg Rate and Rhythm, Normal S1 and S2, No Murmur Lungs: Normal Breath Sounds, No Wheeze, Rales, Rhonchi Neuro: Alert and responsive, No focal deficits noted Abdomen: Soft, Non-Tender Skin: No rashes noted on visualized skin Musculoskeletal: No Chest Wall Tenderness Extremities: No Clubbing, No Cyanosis, No Edema, Normal Pulses Results 12/07/18 07:36 12/07/18 01:47 Lab Results 12/06/18 12/06/18 12/06/18 13:50 13:50 19:44 WBC Hgb 13.3 13.7 Hct 40.8 42.2 Plt Count Sodium Potassium Chloride Carbon Dioxide BUN Creatinine Glucose Calcium Troponin I < 0.03 12/07/18 12/07/18 12/07/18 01:47 01:47 01:47 WBC 5.2 Hgb 13.5 13.5 Hct 41.0 41.1 Plt Count 205 Sodium 140 Potassium 4.0 Chloride 104 Carbon Dioxide 29 BUN 17 Creatinine 1.17 Glucose 122 H Calcium 9.2 Troponin I 12/07/18 07:36 WBC Hgb 13.3 Hct 40.6 Plt Count Sodium Potassium Chloride Carbon Dioxide BUN Creatinine Glucose Calcium Troponin I Consult Discharge Plan - Plan Instructions: Syncope (DC) Additional Instructions: Stop taking the lisinopril, HCTZ, and midrodrine. Follow up with Cardiology as schedule Referrals: Alberto Weaver MD [Partnered Physician] - (Webrequest sent 12/07/18 ) Caleb Spence CNP [Advanced Practice Nurse] - (Webrequest sent) NONE,PCP [Primary Care Provider] - (Patient apart of Red Team at [place], he will call today) <Jose Dunn - Last Filed: 12/07/18 14:34> Date of Encounter: 12/07/18 Assessment and Plan (1) Syncope Status: Resolved - Patient initially presented after experiencing a syncopal episode after he had a bowel movement and noticed a large amount of blood in toilet bowl - Per patient's , patient went down suddenly and was making snoring noises, and had a slight upper extremity tremor - Woke up spontaneously after being down for approximately 2-3 minutes; no post ictal symptoms were observed - Workup including EEG and ECHO has been unremarkable Plan: - Recommend discontinuation of Midrodrine, as this may be contributing to patient's symptoms - Discharge patient with Holter monitor - Recommend electrophysiology followup in outpatient setting - Patient instructed not to drive until he is cleared Qualifiers: Syncope type: unspecified Qualified Code(s): R55 - Syncope and collapse Discussion w patient/family: The assessment and plan as outlined above was discussed with the patient and/or family members who expressed understanding and agreement. All questions were answered. Thank you for involving us in the care of your patient. Please call with any questions. Results 12/07/18 07:36 12/07/18 01:47 Lab Results 12/06/18 12/07/18 12/07/18 19:44 01:47 01:47 WBC 5.2 Hgb 13.7 13.5 13.5 Hct 42.2 41.0 41.1 Plt Count 205 Sodium Potassium Chloride Carbon Dioxide BUN Creatinine Glucose Calcium 12/07/18 12/07/18 01:47 07:36 WBC Hgb 13.3 Hct 40.6 Plt Count Sodium 140 Potassium 4.0 Chloride 104 Carbon Dioxide 29 BUN 17 Creatinine 1.17 Glucose 122 H Calcium 9.2
== END 2018-12-07 10:48 | disposition home or self-care (01) | DRG 312 ==
LOC: ICNU → SUATTDRO 12-06 01:38 → 2ANU 12-06 16:06
PROVIDERS: ADMIT Pediatrics; ATTEND Internal Medicine